=== PATIENT | male | born 1960 | race Caucasian/White ===

== ENCOUNTER → 2022-09-14 | Outpatient (CLI) | payer BC, SELFPAY ==
--- NOTE | 2022-09-14 08:07 | US_ITS ---
INDICATION: Intermittent right upper quadrant pain. EXAMINATION: Ultrasound US Abdomen Complete TECHNIQUE: Pinzon-scale and color Doppler imaging was performed of the abdomen. COMPARISON: None. FINDINGS: LIVER: There is normal echotexture. No focal hepatic lesion. No intrahepatic biliary ductal dilatation. There is no free fluid. The liver measures about 16.8 cm in length. The portal vein is patent with normal hepatopedal flow. GALLBLADDER AND BILIARY TREE: Multiple gallstones and sludge in the gallbladder. The proximal common bile duct measures 3.5 mm. The gallbladder wall measures 2.8 mm. . SONOGRAPHIC BANGURA''S SIGN: Negative. PANCREAS: Obscured by bowel gas and not visualized. KIDNEYS: The right kidney measures 10.8 cm in length. The renal cortex measures 2.1 cm. There is a 2.2 cm cyst in the right kidney. US/Abdomen Limited IMPRESSION: 1. Sludge and gallstones without evidence of biliary duct dilatation or gallbladder wall thickening. 2. Small right renal cyst. Electronically Signed: Wood Martin MD at 15:47 EST ,
== END | disposition home or self-care (01) ==
LOC: US 08:05
PROVIDERS: PCP Family Medicine; Visit Provider Family Medicine
DX: R10.11 Right upper quadrant pain (principal)
CPT/HCPCS: 76705

== ENCOUNTER 2022-10-04 11:33 | Day surgery (SDC) | payer BC, SELFPAY ==
[2022-10-04] VITALS (11 sets, daily range): BP systolic 148–175; BP diastolic 94–112; PULSE 69–82; RESP 16–18; TEMP 36.6–36.8; O2SAT 9–98; BMI 29.3
--- NOTE | 2022-10-04 11:58 | EKG12_ITS ---
Test Reason : PRE-OP Blood Pressure : / mmHG Vent. Rate : 066 BPM Atrial Rate : 066 BPM P-R Int : 174 ms QRS Dur : 096 ms QT Int : 380 ms P-R-T Axes : 030 -20 027 degrees QTc Int : 398 ms Normal sinus rhythm Normal ECG No previous ECGs available Confirmed by THANH BARRETT, DALLAS ([id number]), deputy editor in chief GATITO MARTINEZ ([id number]) on 10/09/2022 11:39:05 AM Referred By: Elder Abdul Confirmed By:DALLAS LAW MD
--- NOTE | 2022-10-04 11:59 | PCM.HP.BLA ---
History and Physical Date of Admission: 10/04/22 Visit Reasons:?Abdominal Pain/09/15 [facility] [place] Complaint: abdominal pain Allergies No Known Allergies Allergy (Unverified 10/02/22 14:02) Medications atorvastatin 10 mg tablet 10 mg PO DAILY 10/02/22 [History Confirmed 10/02/22] bupropion HCl 100 mg tablet 100 mg PO DAILY 10/02/22 [History Confirmed 10/02/22] meloxicam 15 mg tablet 15 mg PO DAILY 10/02/22 [History Confirmed 10/02/22] lqjtqhpy-nes-rnutc acid 300 mcg-lycopene 600 mcg-lutein 300 mcg tablet (Centrum Silver Men) 1 tab PO DAILY 10/02/22 [History Confirmed 10/02/22] quinapril 10 mg tablet 10 mg PO DAILY 10/02/22 [History Confirmed 10/02/22] [facility] Social History?(Updated 10/02/22 @ 13:57 by Mahnaz Kramer) Smoking Status:? Never smoker alcohol intake:? never substance use type:? does not use HPI HPI HPI: 62-year-old gentleman is being referred by Dr. Dom Rowe for surgical consultation regarding abdominal pain.? A written copy of my surgical consult recommendations will return to him.? The patient is also being referred for consideration of colon cancer screening.? Apparently the patient had a episode severe abdominal pain spring 2021 and then again August 2022.? This occurred in the epigastric right upper quadrant area with radiation to his back.? By report at least a year and a half ago he had a similar episode and was seen at an emergency room where CT scan suggested gallstones.? At the [facility] on September 14, 2022 right upper quadrant abdominal ultrasound was obtained.? Multiple gallstones and sludge were noted.? Common bile duct measuring 3.5 mm.? Gallbladder wall was 2.8 mm.? Small right renal cyst noted. Steer the patient recants that it care abdominal pain but then it resolved.? He had a CT scan suggesting gallstones he then did well until July 2022 when he had another severe episode.? Claims that lasted about 15 minutes with very severe and then gradually faded.? He saw Dr. Rowe and a diagnosis tentatively be made of cholecystitis.? The patient has had hepatitis C but that was initially treated with interferon and then more recently treated and apparently has resolved.? He did not notice any Coca-Cola urine or any pruritus. He also is in need of a screening colonoscopy.? He notes some fecal incontinence couple hours after defecation.? Occasional blood but nothing specific.? He denies any previous history of colon polyps or colon cancer. He denies myocardial infarction CVA diabetes DVT.? 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 General General: No weight change, appetite, fatigue, colon cancer, breast cancer or weakness HEENT HEENT: No difficulty swallowing, eye injury, eye surgery, swollen glands or hoarseness Endo Endocrine: No thyroid disease, diabetes mellitus, thyroid cancer, Hair loss, heat intolerance or cold intolerance Skin Skin: No rash or changing moles Musc Musculoskeletal: Yes back problems and arthritis; No rheumatoid arthritis, gout or joint pain Cardio Cardiovascular: Yes high blood pressure; No murmur, pacemaker, heart disease, atrial fibrillation, heart attack, heart stent, palpitations, shortness of breat with exertion or chest pain Psych Psychiatric: Yes depression and anxiety; No hearing voices Resp Respiratory: No shortness of breath, No sleep apnea, No cough, No COPD, No asthma, No emphysema and No wheezing Gastro Gastrointestinal: Yes abdominal pain, No nausea or vomiting, No diarrhea, No constipation, No blood in stool, Yes acid reflux, Yes hemorrhoids, No ulcers, Yes gallbladder problem and No black,tarry stools Gerald Hematologic: No blood thinners, No blood disorders, No bleeding, No anemia and No blood clots Neuro Neurologic: No system reviewed and no additional complaints, except as documented, No as per HPI, No abnormal gait, No abnormal hearing, No abnormal movements, No abnormal speech, No behavioral changes, No burning sensations, No confusion, No convulsions, No disequilibrium, No dizziness, No localized weakness, No frequent falls, No headache(s), No lack of coordination, No loss of vision, No memory loss, No numbness, No other visual disturbances, No radicular pain, No restless legs, No sensory deficit, No syncope, No tingling, No tremor(s), No weakness and No other Exam Const General: cooperative, healthy appearing, comfortable and no acute distress [facility] Head: normal to inspection Eyes General: appearance normal, both eyes and all related structures Neck Neck: normal visual inspection Chest Chest palpation & inspection: normal inspection of the chest Resp Effort & Inspection: normal respiratory effort Auscultation: clear to auscultation bilaterally Cardio Rate: regular rate Rhythm: regular rhythm GI Inspection: normal to inspection Palpation: soft and no hepatosplenomegaly Musc Cervical Spine: normal cervical lordosis Skin General: no rashes or lesions noted Neuro General: patient alert, patient awake and patient oriented x3 Extrem General: no calf tenderness Psych Appearance: grossly normal Assessment and Plan Assessment and Plan (1) Cholelithiasis with chronic cholecystitis: ?Status:?Chronic (2) Screening for intestinal cancer: ?Status:?Acute Plan I initially recommended the patient a screening colonoscopy with possible biopsy or polypectomy as indicated.? He however is concerned that the bowel prep may throw him into a bout of acute cholecystitis.? He is willing to delay the colonoscopy till after his gallbladder surgery.? I do believe that the severe episodes of pain that he is having to correlate with his gallbladder and I have discussed with him in detail a laparoscopic cholecystectomy with cholangiograms and if need be an attempt at laparoscopic common bile duct exploration.? He has had an opportunity to ask and have questions answered. He is aware that OR staffing is very short currently.? We will try to schedule and expedite his care. I then anticipate allowing him an absolute full recovery from his general surgical procedure and likely catch up with the return colonoscopy in about 3 months. I very much appreciate the kind opportunity of assisting with the surgical care Copy: Dr. Dom Abdul M.D., F.A.C.S I have examined the patient and the H&P has been reviewed. There are no clinical changes since date of exam. Elder Abdul M.D., F.A.C.S.
[2022-10-04] MEDS: Lactated Ringers 1,000 ML 15 ML IV ×2 (12:39→15:00)
--- NOTE | 2022-10-04 13:52 | DCINST_ITS ---
Discharge Instructions Procedure General Surgery Diet Discharge Diet: Light diet - advance as tolerated (if you have questions about your diet instructions, please talk to you doctor.) Activity Discharge Activity: May Not Drive (for 3-5 days or while taking narcotic pain medicine.) May shower in (days): 1 Lifting Restrictions: 10 pounds Dressing / Incision Call your doctor if your incision/area has: Continuous Slow Oozing, Sudden Increased Bleeding, Increased Pain/ Swelling, Increased Redness and Foul Smelling Discharge Call your doctor if you observe: Fever of 101 or Higher Suture Line Care: Avoid Pulling/Pushing and Avoid Pinching/Bending Additional Dressing/Incision Instructions:: Change or remove dressing in 4 days. Leave steri-strips in place for 1 week. Follow Up Care Please Follow Up With: Elder Abdul MD When: Call [phone] to make an appointment to be seen in about 10 days. Test Results: Test results from this visit will be discussed in further detail at your follow- up appointment, if applicable. Discharge Plan Admission Attending Provider: Elder Abdul Primary Care Provider: Dom Rowe Discharge Orders/Prescriptions Prescriptions: No Action meloxicam 15 mg tablet 15 mg PO DAILY bupropion HCl 100 mg tablet 200 mg PO DAILY atorvastatin 10 mg tablet 10 mg PO DAILY quinapril 10 mg tablet 10 mg PO DAILY Centrum Silver Men 300-600-300 mcg tablet 1 tab PO DAILY Referrals / Follow Up: Dom Rowe MD [Primary Care Provider] - Disposition Disposition (needs filled in before D/C Order can be placed): Home, Self Care
--- NOTE | 2022-10-04 14:00 | GALL_PTH ---
PATIENT: ISIS SOARES LOC: [facility] [place] U#:[id number] AGE/SX: 62/M ROOM: RE10/04/[address]: Dr. Isis Abdul MD : 1960 BED: DIS: 10/04/2022 SPEC #: [id number] RECD: 10/04/22 16:57 STATUS: FELICIA RELandy #: [id number] NISREEN: 10/04/22 14:[address]: Isis Abdul DEPT: SURGICAL PATHOLOGY RECD BY: Divya Abbasi ENTERED: 10/05/22 09:42 SP TYPE: CASSIUS NOVA DR: Dr. Dom Rowe MD Tissues: Gallbladder, NOS Procedures: Surgery Specimen Level III HEADER OPERATION: Laparoscopic cholecystectomy with IOC PRE-OP DIAGNOSIS: Cholelithiasis with chronic cholecystitis TISSUE SUBMITTED: Gallbladder MICROSCOPIC DIAGNOSIS Gallbladder, cholecystectomy: Chronic cholecystitis and cholelithiasis. AM:antoni 10/08/2022 MICROSCOPIC DESCRIPTION Slides are reviewed. GROSS DESCRIPTION Received is one container labeled with the patient's name and designated gallbladder. The specimen consists of a gallbladder measuring 9.5 cm in length and up to 4 cm in diameter. The external surface is pink-garcia, smooth and glistening for the most part. Focally it is granular, hemorrhagic and contains cautery artifact. The gallbladder is distended with green-yellow mucoid bile and contains multiple, multifaceted brownish-black stones measuring in aggregate 4.5 x 3.5 x 2 cm and 1 to 1.5 cm in greatest dimension. A large amount of sludge material is also noted. The mucosa is bile-stained and without any mass lesions. The gallbladder wall measures up to 0.2 cm in thickness. Hand Glass Cutter sections from the gallbladder and the cystic duct are submitted in one cassette. / SJ:antoni 10/05/2022 TC:3 CPT: 07656
[2022-10-04] MEDS: Cefazolin 2 GM in 0.9% Normal Saline 100 ML IV (14:30)
[2022-10-04] MEDS: Bupivacaine Mpf 0.5% 30 ML VIAL (14:32)
--- NOTE | 2022-10-04 14:39 | RAD_ITS ---
CLINICAL HISTORY: Male, 62 years old. Possible common bile duct obstruction PROCEDURE: CHOLANGIOGRAM - FLUOROSCOPY TIME (if supplied): ( ) minutes/seconds Placement of the catheter and the procedure were performed by: Operating surgeon Fluoroscopy was provided by time study technologist, who was present in the room time of the procedure. TECHNIQUE: (All elements of maximal sterile barrier technique followed, including US elements as applicable Intraoperative cholangiogram was performed. Following contrast administration 76 fluoroscopic guided images were obtained. Glucagon was given during the study. There is emptying into the post bulbar duodenum without evidence for intraductal stone.. RAD/Cholangiogram O.R./Subsequent IMPRESSION: Patent common bile duct status post cholecystectomy. For more complete information. recommend correlation with surgical observation and note Electronically Signed: Indra Davalos MD at 15:56 EST ,
--- NOTE | 2022-10-04 14:39 | RAD_ITS ---
CLINICAL HISTORY: Male, 62 years old. Pain PROCEDURE: CHOLANGIOGRAM - transhepatic FLUOROSCOPY TIME (if supplied): 37.2 seconds Placement of the catheter and the procedure were performed by: Operating surgeon Fluoroscopy was provided by geospatial information technologist, who was present in the room time of the procedure. TECHNIQUE: (All elements of maximal sterile barrier technique followed, including US elements as applicable) Following contrast injection multiple fluoroscopic guided images were obtained without emptying into the common bile duct but without definitive evidence for obstructing stone possibly due to spasm. RAD/Cholangiogram/ O R,Initial IMPRESSION: Nonemptying of the common bile duct during intraoperative cholangiogram of uncertain etiology without definitive evidence for intraductal stone. For more complete information recommend correlation with surgical notes Electronically Signed: Indra Davalos MD at 16:01 EST ,
--- NOTE | 2022-10-04 15:36 | PCM.OPRPT ---
Report of Operation Date of Procedure: 10/04/22 Pre-Operative Diagnosis: Chronic cholecystitis cholelithiasis Post-Operative Diagnosis: Same Surgery/Procedure Performed:: Laparoscopic cholecystectomy with cholangiograms Description of Surgical Findings:: Timeout informed consent was obtained. 62-year-old gentleman was taken to the operating room placed upon the table underwent general endotracheal intubation anesthesia the abdomen was sterilely prepped and draped 0.25% Marcaine was used as a local anesthetic throughout the procedure a total of 30 cc was used skin sites were pretty anesthetized a vertical infraumbilical incision was created holding sutures of 0 Vicryl placed varies needle inserted saline drop test performed the abdomen was insufflated with a CO2 to a pressure of 10 mmHg pressure 10 mm trocar inserted 10 mm laparoscope inserted no evidence of any trocar injuries under direct visualization 5 mm ports were placed in the epigastric mid abdomen right upper quadrant patient was fibrofatty internally. The gallbladder was distracted tedious blunt dissection was instituted that the infundibulum until clearly the cystic duct and cystic artery were identified. The cystic artery was clipped proximally and distally prior to transecting it Hem-o-jonah clip was placed on the cystic duct and incision made in the cystic duct there was some sludge and debris which I then milked backwards then placed a cholangiogram catheter cholangiogram was performed with a very slow filling of the common bile duct. The patient received 1 mg of glucagon intravenously. Several intermittent pictures were performed until finally the contrast could be seen to escape into the duodenum. Although the common bile duct appeared to be mildly dilated there appeared to be either some spasm or potentially some stricturing right at the ampulla but the contrast did flow through. I could not demonstrate any intraluminal filling defect.. I did not see anything that warranted a laparoscopic common bile duct exploration at this time. Plan scram catheter was removed. Hem-o-jonah clip was placed on the cystic duct. The gallbladder was tediously dissected free from the liver bed with electrocautery. There was edema and inflammation identified. There was no stone or bile spillage. The gallbladder was placed in a retrieval bag. Because of the inflammatory changes I did place to be large in the liver bed. The right upper quadrant was irrigated and aspirated free of excess fluid. The gallbladder was exited at the umbilicus and enlargement of the fascia was required for exited the stone filled gallbladder. The abdomen had previous been allowed to deflate through an antiviral valve. The fascia was closed with 2 interrupted krglrn-so-mcvhg sutures of 0 Vicryl. Skin edges approximated opted for Monocryl subdermal stitches. Steri-Strips Telfa OpSite dressings applied. Sponge and instrument and needle counts were reported to the surgeon to be correct. Specimen gallbladder. Drains none. Blood loss minimal. The patient was taken to the recovery room in satisfied condition without apparent complication Elder Abdul M.D., F.A.C.S. Surgeon: Elder Abdul Type of Anesthesia: General and Local Anesthesiologist: Tee Tomlinson
[2022-10-04] MEDS: Ketorolac 30 MG/ML Syringe IV (17:15)
[2022-10-04] MEDS: HYDROcodone Bitartrate/Apap 5/325 Tablet PO (17:58)
== END 2022-10-04 18:47 | disposition home or self-care (01) ==
LOC: SDC 11:34 → AC 11:36
PROVIDERS: PCP Family Medicine; Referring Provider Surgery; Visit Provider Surgery
PROC: (CPT 47610; principal; 2022-10-04 13:40)
DX: K80.10 Calculus of gallbladder with chronic cholecystitis without obstruction (principal); N28.1 Cyst of kidney, acquired; K21.9 Gastro-esophageal reflux disease without esophagitis; I10 Essential (primary) hypertension; B19.20 Unspecified viral hepatitis C without hepatic coma
CPT/HCPCS: 47563; 00790; 74300; 74301; 76000; 88304; 93005; J7120; J1610; J2405

== ENCOUNTER 2023-01-11 07:01 | Day surgery (SDC) | payer BC, SELFPAY ==
[2023-01-11 07:27] VITALS: BP 141/91; PULSE 79; RESP 16; TEMP 36.3; O2SAT 96; BMI 28.7
[2023-01-11] MEDS: Lactated Ringers 1,000 ML 15 ML IV (07:32)
--- NOTE | 2023-01-11 07:59 | HP.PCM_ITS ---
History and Physical Date of Admission: 01/11/23 Chief Complaint: abdominal pain Allergies No Known Allergies Allergy (Unverified 10/02/22 14:02) Medications atorvastatin 10 mg tablet 10 mg PO DAILY 10/02/22 [History Confirmed 10/02/22] bupropion HCl 100 mg tablet 100 mg PO DAILY 10/02/22 [History Confirmed 10/02/22] meloxicam 15 mg tablet 15 mg PO DAILY 10/02/22 [History Confirmed 10/02/22] igxxvnpx-hxo-zfbmg acid 300 mcg-lycopene 600 mcg-lutein 300 mcg tablet (Centrum Silver Men) 1 tab PO DAILY 10/02/22 [History Confirmed 10/02/22] quinapril 10 mg tablet 10 mg PO DAILY 10/02/22 [History Confirmed 10/02/22] PFSH Social History?(Updated 10/02/22 @ 13:57 by Mahnaz Kramer) Smoking Status:? Never smoker alcohol intake:? never substance use type:? does not use HPI HPI HPI: 62-year-old gentleman is being referred by Dr. Dom Rowe for surgical consultation regarding abdominal pain.? A written copy of my surgical consult recommendations will return to him.? The patient is also being referred for consideration of colon cancer screening.? Apparently the patient had a episode severe abdominal pain spring 2021 and then again August 2022.? This occurred in the epigastric right upper quadrant area with radiation to his back.? By report at least a year and a half ago he had a similar episode and was seen at an emergency room where CT scan suggested gallstones.? At the [facility] on September 14, 2022 right upper quadrant abdominal ultrasound was obtained.? Multiple gallstones and sludge were noted.? Common bile duct measuring 3.5 mm.? Gallbladder wall was 2.8 mm.? Small right renal cyst noted. Steer the patient recants that it care abdominal pain but then it resolved.? He had a CT scan suggesting gallstones he then did well until July 2022 when he had another severe episode.? Claims that lasted about 15 minutes with very severe and then gradually faded.? He saw Dr. Rowe and a diagnosis tentatively be made of cholecystitis.? The patient has had hepatitis C but that was initially treated with interferon and then more recently treated and apparently has resolved.? He did not notice any Coca-Cola urine or any pruritus. He also is in need of a screening colonoscopy.? He notes some fecal incontinence couple hours after defecation.? Occasional blood but nothing specific.? He de nies any previous history of colon polyps or colon cancer. He denies myocardial infarction CVA diabetes DVT.? 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 General General: No weight change, appetite, fatigue, colon cancer, breast cancer or weakness HEENT HEENT: No difficulty swallowing, eye injury, eye surgery, swollen glands or hoarseness Endo Endocrine: No thyroid disease, diabetes mellitus, thyroid cancer, Hair loss, heat intolerance or cold intolerance Skin Skin: No rash or changing moles Musc Musculoskeletal: Yes back problems and arthritis; No rheumatoid arthritis, gout or joint pain Cardio Cardiovascular: Yes high blood pressure; No murmur, pacemaker, heart disease, atrial fibrillation, heart attack, heart stent, palpitations, shortness of breat with exertion or chest pain Psych Psychiatric: Yes depression and anxiety; No hearing voices Resp Respiratory: No shortness of breath, No sleep apnea, No cough, No COPD, No asthma, No emphysema and No wheezing Gastro Gastrointestinal: Yes abdominal pain, No nausea or vomiting, No diarrhea, No constipation, No blood in stool, Yes acid reflux, Yes hemorrhoids, No ulcers, Yes gallbladder problem and No black,tarry stools Gerald Hematologic: No blood thinners, No blood disorders, No bleeding, No anemia and No blood clots Neuro Neurologic: No system reviewed and no additional complaints, except as documented, No as per HPI, No abnormal gait, No abnormal hearing, No abnormal movements, No abnormal speech, No behavioral changes, No burning sensations, No confusion, No convulsions, No disequilibrium, No dizziness, No localized weakness, No frequent falls, No headache(s), No lack of coordination, No loss of vision, No memory loss, No numbness, No other visual disturbances, No radicular pain, No restless legs, No sensory deficit, No syncope, No tingling, No tremor(s), No weakness and No other Exam Const General: cooperative, healthy appearing, comfortable and no acute distress [facility] Head: normal to inspection Eyes General: appearance normal, both eyes and all related structures Neck Neck: normal visual inspection Chest Chest palpation & inspection: normal inspection of the chest Resp Effort & Inspection: normal respiratory effort Auscultation: clear to auscultation bilaterally Cardio Rate: regular rate Rhythm: regular rhythm GI Inspection: normal to inspection Palpation: soft and no hepatosplenomegaly Musc Cervical Spine: normal cervical lordosis Skin General: no rashes or lesions noted Neuro General: patient alert, patient awake and patient oriented x3 Extrem General: no calf tenderness Psych Appearance: grossly normal Assessment and Plan Assessment and Plan (1) Cholelithiasis with chronic cholecystitis: ?Status:?Chronic (2) Screening for intestinal cancer: ?Status:?Acute Plan I initially recommended the patient a screening colonoscopy with possible biopsy or polypectomy as indicated.? He however is concerned that the bowel prep may throw him into a bout of acute cholecystitis.? He is willing to delay the colonoscopy till after his gallbladder surgery.? I do believe that the severe episodes of pain that he is having to correlate with his gallbladder and I have discussed with him in detail a laparoscopic cholecystectomy with cholangiograms and if need be an attempt at laparoscopic common bile duct exploration.? He has had an opportunity to ask and have questions answered. He is aware that OR staffing is very short currently.? We will try to schedule and expedite his care. I then anticipate allowing him an absolute full recovery from his general surgical procedure and likely catch up with the return colonoscopy in about 3 months. I very much appreciate the kind opportunity of assisting with the surgical care Copy: Dr. Dom Abdul M.D., F.A.C.S The patient has undergone a laparoscopic cholecystectomy for chronic c holecystitis cholelithiasis and he has done well. He presented this time however to undergo a screening colonoscopy. He is aware of the technique, benefit, risk, alternatives. His history and physical otherwise is unchanged other than having accomplished the cholecystectomy. Elder Abdul M.D., F.A.C.S.
--- NOTE | 2023-01-11 08:00 | HP.PCM_ITS ---
HPI - General General Date of Admission: 01/11/23 Date of Service: 01/11/23 Chief Complaint: Screening for intestinal cancer HPI Narrative ELDER SOARES, is a 62 M who presents presents for screening colonoscopy today. He has not had a previous examination. [facility] Medical History (Updated 01/07/23 @ 13:31 by Ashley Erazo) Anxiety Arthritis Back pain Depression Former smoker Gastric reflux Hepatitis High cholesterol History of stress test Hypertension Leg cramps Wears glasses Home Medications atorvastatin 10 mg tablet 10 mg PO DAILY 10/02/22 [History Last Taken Unknown] bupropion HCl 100 mg tablet 200 mg PO DAILY 10/02/22 [History Last Taken Unknown] meloxicam 15 mg tablet 15 mg PO DAILY 10/02/22 [History Last Taken Unknown] wcylpbid-yji-rwjib acid 300 mcg-lycopene 600 mcg-lutein 300 mcg tablet (Centrum Silver Men) 1 tab PO DAILY 10/02/22 [History Last Taken Unknown] quinapril 10 mg tablet 10 mg PO DAILY 10/02/22 [History Last Taken 10/04/22] ranitidine HCl 150 mg tablet 150 mg PO QODAY 01/07/23 [History Last Taken Unknown] Allergy/AdvReac Type Severity Reaction Status Date / Time No Known Allergies Allergy Verified 01/11/23 07:27 Surgical History (Updated 01/07/23 @ 13:31 by Ashley Erazo) History of laparoscopic cholecystectomy Hx of elbow surgery Social History (Updated 10/02/22 @ 13:57 by Mahnaz Kramer) Smoking Status: Former smoker alcohol intake: never substance use type: does not use ROS Constitutional Constitutional: Reports systems reviewed and no addt'l complaints, except as documented Cardiovascular Cardiovascular: Denies chest pain Respiratory/Chest Respiratory/Chest: Denies shortness of breath at rest Gastrointestinal Gastrointestinal: Denies abdominal pain, change in bowel habits, hematochezia or melena Vital Signs Vital Signs Vital Signs: 01/11/23 07:27 01/11/23 07:27 Temperature 97.3 F L Temperature Source Temporal Pulse Rate 79 Respiratory Rate 16 Respiratory Pattern Normal Blood Pressure 141/91 H Blood Pressure Mean 107 Blood Pressure Source Monitor Blood Pressure Position Semi-Fowlers Blood Pressure Location Left Arm Pulse Ox 96 Oxygen Delivery Method Room Air Weight Weight: 199 lb 15.348 oz Body Mass Index (BMI) 28.7 Physical Exam Const alert, oriented x3 and no apparent distress General Appearance: cooperative and comfortable Eyes General Eye: normal appearance of both eyes Neck General: normal visual inspection Chest inspection of chest normal Resp Effort and Inspection: able to speak in complete sentences and symmetric chest movement Auscultation: clear to auscultation bilaterally Cardio regular rate and regular rhythm GI soft to palpation, non-tender and non-distended Extremity no calf tenderness Neuro oriented x3 Psych thought process normal Assessment & Plan Assessment/Plan (1) Screening for intestinal cancer: PLAN: 62-year-old gentleman presents for screening colonoscopy today. He is aware of the technique, benefit, risk, alternatives. He has had an opportunity to ask and have questions answered. We will proceed as noted. Elder Abdul M.D., F.A.C.S.
--- NOTE | 2023-01-11 08:15 | COLBX_PTH ---
PATIENT: ISIS SOARES LOC: EN U#:[id number] AGE/SX: 62/M ROOM: RE01/11/[address]: Dr. Isis Abdul MD : 1960 BED: DIS: 01/11/2023 SPEC #: [id number] RECD: 01/11/23 13:25 STATUS: FELICIA RE #: [id number] NISREEN: 01/11/23 08:[address]: Isis Abdul DEPT: SURGICAL PATHOLOGY RECD BY: Divya Abbasi ENTERED: 01/11/23 13:57 SP TYPE: COLON BX OTHR DR: Dr. Dom Rowe MD Tissues: Descending colon Procedures: Surgery Specimen Level IV HEADER OPERATION: Colonoscopy (MAC) with biopsy PRE-OP DIAGNOSIS: Screening TISSUE SUBMITTED: Biopsy polyp descending colon MICROSCOPIC DIAGNOSIS Descending colon polyp, biopsy: Fragments of colonic mucosa, no pathologic diagnosis. SJ:antoni 01/14/2023 MICROSCOPIC DESCRIPTION Slides are reviewed. GROSS DESCRIPTION Received in fixative is one container labeled with the patient's name and designated biopsy polyp descending colon. The specimen consists of two irregular fragments of light garcia soft tissue that in aggregate measure 0.6 x 0.3 x 0.1 cm. The specimen is totally submitted in one cassette. / SJ:antoni 01/11/2023 TC:4 CPT: 49030
--- NOTE | 2023-01-11 09:16 | OP.CCLET_ITS ---
01/11/2023 Dom Rowe Re : Colonoscopy procedure for Elder Diazshannon Rowe This procedure was performed on Wednesday, January 11, 2023. My impressions and recommendations are as follows: Impressions : - One 5 mm polyp in the distal descending colon, removed with a cold biopsy forceps. Resected and retrieved. - The examination was otherwise normal. Recommendations : - Discharge patient to home. - Resume previous diet. - Continue present medications. - Repeat colonoscopy in 5 years for surveillance based on pathology results. - Telephone my office for pathology results in 1 week. My findings are described in the full procedure note, which is enclosed. If I can be of further assistance, please feel free to contact me at Doctor phone number(s): Work: . Sincerely, Elder Abdul MD 01/11/2023 9:15:21 AM This report has been signed electronically.
--- NOTE | 2023-01-11 09:16 | OP.COLON_ITS ---
Patient Name: Elder Ross Procedure Date: 01/11/2023 8:45 AM Date of : 1960 Age: 62 Procedure: Colonoscopy Indications: Screening for colorectal malignant neoplasm Providers: Elder Abdul MD Referring MD: Elder Abdul MD Medicines: See the Anesthesia note for documentation of the administered medications Patient Profile: Last Colonoscopy: none. The patient's first colonoscopy is today. Complications: No immediate complications. Procedure: Pre-Anesthesia Assessment: - Prior to the procedure, a History and Physical was performed, and patient medications and allergies were reviewed. The patient's tolerance of previous anesthesia was also reviewed. The risks and benefits of the procedure and the sedation options and risks were discussed with the patient. All questions were answered, and informed consent was obtained. Prior Anticoagulants: The patient has taken no previous anticoagulant or antiplatelet agents. ASA Grade Assessment: II - A patient with mild systemic disease. After reviewing the risks and benefits, the patient was deemed in satisfactory condition to undergo the procedure. After I obtained informed consent, the scope was passed under direct vision. Throughout the procedure, the patient's blood pressure, pulse, and oxygen saturations were monitored continuously. The colonoscope was introduced through the anus and advanced to the cecum, identified by appendiceal orifice and ileocecal valve. The colonoscopy was performed without difficulty. The patient tolerated the procedure well. The quality of the bowel preparation was good. The ileocecal valve and the appendiceal orifice were photographed. Scope In: 8:52:45 AM Scope Withdrawal Time 0 hours 12 minutes 44 seconds Scope Out: 9:11:31 AM Total Procedure Duration Time 0 hours 18 minutes 46 seconds Findings: The perianal and digital rectal examinations were normal. A 5 mm polyp was found in the distal descending colon. The polyp was sessile. The polyp was removed with a cold biopsy forceps. Resection and retrieval were complete. The exam was otherwise without abnormality. Impression: - One 5 mm polyp in the distal descending colon, removed with a cold biopsy forceps. Resected and retrieved. - The examination was otherwise normal. Recommendation: - Discharge patient to home. - Resume previous diet. - Continue present medications. - Repeat colonoscopy in 5 years for surveillance based on pathology results. - Telephone my office for pathology results in 1 week. Procedure Code(s): --- Professional --- 00032, Colonoscopy, flexible; with biopsy, single or multiple Diagnosis Code(s): --- Professional --- Z12.11, Encounter for screening for malignant neoplasm of colon D12.4, Benign neoplasm of descending colon CPT copyright 2017 [employer]. All rights reserved. The codes documented in this report are preliminary and upon medical insurance coder review may be revised to meet current compliance requirements. Elder Abdul MD 01/11/2023 9:15:21 AM This report has been signed electronically. Number of Addenda: 0 Note Initiated On: 01/11/2023 8:45 AM
[2023-01-11 09:17] VITALS: BP 141/91; BP 96/67; PULSE 73; RESP 14; TEMP 36.3; O2SAT 93
[2023-01-11 09:20] VITALS: BP 108/73; BP 141/91; PULSE 67; RESP 16; O2SAT 94
[2023-01-11 09:25] VITALS: BP 116/75; BP 141/91; PULSE 67; RESP 16; O2SAT 94
[2023-01-11 09:32] VITALS: BP 130/95; BP 141/91; PULSE 77; RESP 14; TEMP 36.9; O2SAT 97
[2023-01-11 09:52] VITALS: BP 141/91
== END 2023-01-11 09:54 | disposition home or self-care (01) ==
LOC: EN 07:01 → AC 07:02
PROVIDERS: PCP Family Medicine; Referring Provider Surgery; Visit Provider Surgery
PROC: 0DJD8ZZ Inspection of Lower Intestinal Tract, Via Natural or Artificial Opening Endoscopic (ICD-10-PCS; CPT 45378; principal; 2023-01-11 08:10)
DX: Z12.11 Encounter for screening for malignant neoplasm of colon (principal); K80.10 Calculus of gallbladder with chronic cholecystitis without obstruction; I10 Essential (primary) hypertension; Z87.891 Personal history of nicotine dependence; N28.1 Cyst of kidney, acquired; E78.00 Pure hypercholesterolemia, unspecified; D12.4 Benign neoplasm of descending colon
CPT/HCPCS: 45380; 88305; J7120; J2405

== ENCOUNTER 2023-03-27 10:55 | Observation (INO) | payer BC, SELFPAY ==
[2023-03-21 13:34] LABS: Absolute Lymphocyte Count 1.07 X10^3/uL (0.83-4.51); Absolute Neutrophil Count 3.2 X10^3/uL (2.0-7.7); Basophil# 0.03 X10^3/uL; Basophil% 0.6 % (0-1); Eosinophil# 0.08 X10^3/uL; Eosinophils% 1.7 % (0-5); Hemoglobin 15.9 g/dL (13.0-16.5); Lymphocyte # 1.07 X10^3/ul (0.83-4.51); Lymphocyte % 22.6 % (19-41); Mean Corp Hgb Conc 33.8 g/dL (32-36); Mean Corpuscular Hgb 30.4 pg (27.0-32.0); Mean Corpuscular Volume 89.9 fL (80-94); Mean Platelet Vol. 10.2 fl (6.2-12.0); Monocyte# 0.31 X10^3/uL; Monocyte% 6.6 % (0-10); NRBC Flagged by Analyzer 0 % (0-5); Neutrophil # 3.23 X10^3/uL (2.7-7.7); Neutrophil % 68.3 % (47-70); Platelet Count 179 K/mm3 (150-450); RBC Distribution Width CV 13.1 % (11.6-14.6); RBC Distribution Width SD 42.7 fl (35.1-43.9); Red Blood Count 5.23 M/mm3 (4.6-6.2); White Blood Count 4.7 K/mm3 (4.4-11.0)
[2023-03-21 13:58] LABS: Magnesium 2.4 mg/dL (1.6-2.6)
[2023-03-21 14:01] LABS: Anion Gap 7 (5-15); BUN 17 mg/dL (7-18); BUN/Creat Ratio 14.2 RATIO (10-20); Calcium,Total 9.1 mg/dL (8.5-10.1); Chloride 103 mmol/L (98-107); EST Glomerular Filtration Rate 65 mL/min (>60); Est Glom Filt Rate - Afr Amer 79 mL/min (>60); Glucose 101 mg/dL (74-106); Sodium Level 137 mmol/L (136-145)
[2023-03-21 15:04] LABS: HIV - WCH Non-Reactive (Nonreactive); Hepatitis B Surface Antibody Reactive
[2023-03-21 15:05] LABS: Hepatitis C Antibody REACTIVE (Nonreactive)
--- NOTE | 2023-03-22 11:20 | HP.PCM_ITS ---
History and Physical Add?Addendum MR#: [id number] Acct: [id number] Name: ISIS SOARES Rep #: [id number] : 1960 Provider: Dr. Brandon Kenney DO Age/Sex: 62/M Location: [facility] [place].[facility] Status: Signed Intake Vital Signs 01/11/2307:27 02/16/2308:14 Height 5 ft 10 in 5 ft 10 in Weight: 207 lb BMI 29.7 Intake Visit Reasons: LUMBAR SPINE Chief Complaint: low back/ left leg pain Is patient in pain?: Yes (low back left leg) Pain scale (1-10): 8 Allergies No Known Allergies Allergy (Verified 02/15/23 08:15) Medications atorvastatin 10 mg tablet 10 mg PO DAILY 10/02/22 [History Confirmed 01/07/23] bupropion HCl 100 mg tablet 200 mg PO DAILY 10/02/22 [History Confirmed 01/07/23] meloxicam 15 mg tablet 15 mg PO DAILY 10/02/22 [History Confirmed 01/07/23] crziaomd-sxd-izonn acid 300 mcg-lycopene 600 mcg-lutein 300 mcg tablet (Centrum Silver Men) 1 tab PO DAILY 10/02/22 [History Confirmed 01/07/23] quinapril 10 mg tablet 10 mg PO DAILY 10/02/22 [History Confirmed 01/07/23] ranitidine HCl 150 mg tablet 150 mg PO QODAY 01/07/23 [History Confirmed 01/07/23] oxycodone-acetaminophen 7.5 mg-325 mg tablet 1 tab PO Q6H PRN pain 10 days #40 tabs 02/15/23 [Rx Confirmed 02/15/23] PFSH Medical History Anxiety Arthritis Back pain Depression Former smoker Gastric reflux Hepatitis High cholesterol History of stress test Hypertension Leg cramps Wears glasses Surgical History History of laparoscopic cholecystectomy Hx of elbow surgery Social History Smoking Status: Former smoker alcohol intake: never substance use type: does not use HPI LUMBAR SPINE Chief Complaint: low back/left leg pain Details: Parts of this documentation were recorded by a scribe, this documentation accurately reflects the service provided and the decisions made by me, Dr. Brandon Kenney, DO 02/15/23 0814. ISIS SOARES is a 62 year old M here today for low back/ left leg pain. Pt. states he has been experiencing pain for about a month and half. Denies known injury. Pt. denies previous back injury or back surgeries. He states his pain radiates down left leg constantly. His pain extends from his left low back into his left foot. He states his foot has been tingling for a month as well. He has been seen by the chiropractor, has had recent low back Xrays and has brought a lumbar disc MRI for review. He has been treating pain with rest,Ibuprofen, TENS and massage. Isis is a most pleasant gentleman 62 years old that has a chief complaint of pain on the left side of his low back that radiates down the left leg that has been described as an L5 dermatome. He was rather nonspecific about the location of the pain however after further and continued questioning I figured out that it was probably an L5 dermatome. He had a Medrol Dosepak at 1 point which did not even touch the pain. On examination he has very positive tension signs and very positive straight leg raising on the left side. His posterior tibialis reflex on the left is absent is 1+ on the right. He has some EHL weakness on the left as compared to the right. He cannot forward bend too far. He has little pain with extension of hi s lumbar spine although it does seem to increase the pain down the leg. He has 2+ patellar reflexes bilaterally. He has 1+ Achilles reflexes bilaterally. He has no long tract signs. Clonus is absent and Babinski's are downgoing. I reviewed his MRI scan of his lumbar spine. He has a ruptured disc particularly at L4-5 more to the left side which with what is possibly an extruded fragment. This was not called by the radiologist however that is not unusual. He does have degeneration of other levels and protrusion at L3-4 in particular however he does not have any L4 symptoms. I told him at some point time he will probably need surgical intervention. However for now we would like an epidural steroid injection. I called Dr. Rust and he agreed to see this patient on Saturday. That is 3 days from today. In the meantime I gave him some oxycodone 7.5/325 pain pills. I will see him again 2 weeks after the injection by Dr. Rust. In the meantime we will probably put him on the surgical schedule in the future as in the end he will need surgical intervention. Coding Level of Care Code Off vis,new,level 3 Diagnoses Herniated nucleus pulposus, L4-5 left M51.26
[2023-03-23 08:10] LABS: Hepatitis A AB, Total Negative (Negative)
[2023-03-27] VITALS (17 sets, daily range): BP systolic 108–158; BP diastolic 70–98; PULSE 70–90; RESP 14–19; TEMP 36.1–36.6; O2SAT 94–100; BMI 29.4
--- NOTE | 2023-03-27 | DISC_PTH ---
PATIENT: ISIS SOARSE LOC: MS3 U#:[id number] AGE/SX: 62/M ROOM: [facility] [place] RE03/27/[address]: Dr. Brandon Kenney DO : 1960 BED: 1 DIS: 03/28/2023 SPEC #: [id number] RECD: 03/27/23 15:30 STATUS: FELICIA REQ #: [id number] NISREEN: 03/27/23 00:[address]: Brandon Kenney DEPT: SURGICAL PATHOLOGY RECD BY: Terry Shah ENTERED: 03/28/23 13:10 SP TYPE: DISC OTHR DR: MD Dr. Jeff Weiss, MD Dr. Laxmi Davis Dr., MD Dr. Autumn L White, MD Dr. Mary Catherine Sementi, DO MD Patrick Tatum MD Dr. David Tomchak, MD Dr. Eric DeHorta, MD Dr. Eric Jopperi, MD Dr. Rafael Carrera Dr., MD Dr. James Mooney, MD Dr. Jonathan Vogt, DO Dr. Margaret Conroy, DO Dr. Noe Elizabeth, DO MD Dr. Jerod Hess MD Dr. Prakash Chand, MD Dr. Paul Nielsen, MD Dr. Paige Pierce, MD Dr. Ryan Burkholder, MD Jessica Franklin, ESTRELLA Flood Tissues: Intervertebral disc, NOS Procedures: Surgery Specimen Level III HEADER OPERATION: Laminectomy L4-5 left PRE-OP DIAGNOSIS: Herniated nucleus pulposus, L4-5 left, M51.26 TISSUE SUBMITTED: Disc 4,5 MICROSCOPIC DIAGNOSIS Herniated nucleus pulposus, L4-5 left: Fragment s of intervertebral disc with degenerative and reparative change. AM:marcial 03/29/23 MICROSCOPIC DESCRIPTION Slides are reviewed. GROSS DESCRIPTION Received is one container labeled with the patient name and designated disc 4,5. The specimen consists of multiple irregular fragments of garcia indurated tissue that in aggregate measure 2 x 2 x 0.3 cm. The specimen is totally submitted in one cassette. / SJ:tita 03/28/23 TC:5 CPT:26659
[2023-03-27] MEDS: Acetaminophen 500 MG Tablet 1000 MG PO ×3 (06:30→21:18)
[2023-03-27] MEDS: Magnesium 1 GM over 15 mins IV (06:35)
[2023-03-27] MEDS: Lactated Ringers 1,000 ML 15 ML IV ×4 (06:35→12:11)
[2023-03-27 06:37] LABS: Bedside Glucose 84 mg/dL (74-106)
--- NOTE | 2023-03-27 07:00 | RAD_ITS ---
STUDY: X-RAY - LUMBAR SPINE REASON FOR EXAM: Male, 62 years old. LAMINECTOMY L4-5 LEFT TECHNIQUE: 1 view(s) of the lumbar spine were obtained. COMPARISON: None FINDINGS: The localization instrument is seen posterior to the L5-S1 disc space level. RAD/Spine 1 View Any Level IMPRESSION: The localization instrument is seen posterior to the L5-S1 disc space level. Electronically Signed: Willis Braun MD at 9:53 EDT ,
[2023-03-27] MEDS: Cefazolin 2 GM in 0.9% Normal Saline 100 ML IV (08:45)
[2023-03-27] MEDS: THROMBIN (RECOMBINANT) 20,000 UNIT VIAL 20000 UNIT TOPICAL (09:05)
[2023-03-27 10:46] LABS: Bedside Glucose 99 mg/dL (74-106)
--- NOTE | 2023-03-27 11:00 | OP.PCM_ITS ---
Report of Operation Description of Surgical Findings:: Preoperative diagnosis: Herniated disc L4-5 on the left with severe left L5 radiculopathy intractable pain and neurological deficit Postoperative diagnosis: The same The procedure: Lumbar laminectomy discectomy and opening of lateral recess L4-5 on the left CPT code 99504 Surgeon: Dr. Kenney [employer] Administrator: Chiqui DE LA ROSA Anesthesia: General endotracheal administered by [facility] EBL: Less than 25 cc Drains: None Complications: None Procedure: Patient was taken to the OR where he was placed under general endotracheal anesthesia. A Frances catheter was inserted. Neuro monitoring placed her leads on the patient. He was then placed in prone position on the Gibson frame. After appropriate positioning with care to protect his bony prominences, his genitalia, ulnar nerves of both elbows, and the brachial plexus bilaterally, and the cervical spine and facial features the back was prepped and draped in standard fashion. I then made a longitudinal incision centered over the lower part of his back subcutaneous tissues were incised length of the skin incision I opened the lumbar fascia to the left of the spinous processes and elevated the paravertebral muscles off a one of the interspaces that we thought might be L4-5 however an intraoperative x-ray demonstrated that it was L5-S1. We simply moved up 1 level to L4-5. I elevated the paravertebral muscles off the lamina of L4 and the top of the lamina of L5. Moved all the areolar tissue off of the ligamentum flavum with Lennon rongeurs. I thinned down the L4 lamina on the left with double-action rongeurs. Then release ligamentum flavum off the underside of the lamina using curettes. I then performed the laminectomy with 45 degree Kerrison rongeurs. Noted I went all the way out lateral and open the lateral recess which was quite tight. In addition he had overlapping superior facet of L5 which undoubtedly led to the lateral recess stenosis. All the ligamentum flavum was removed laterally as this played a role in the stenosis also. I then carefully was able to move the L5 nerve root and dura medialward exposing the disc note that the disc appeared soft and when I pressed on it subligamentous disc came out. These pieces were removed with pituitary rongeurs. I then removed more disc from the disc base with straight and up-biting pituitary rongeurs. In addition I did a foraminotomies following the L5 nerve root out. When done it was completely loose with no pressure at all on that nerve root. Note that we thoroughly irrigated every 10 to 50 minutes in the course of the case during the entire case. This is to prevent infection of course. Lastly we put an amniotic membrane directly over the dura to prevent adhesions or scar formation in the future. We covered it with Gelfoam. The area was so dry there was no need for a drain. Then began closure closing the lumbar fascia using fadake-fo-ibwux suture with #1 Vicryl followed by closure of subcutaneous tissues with 0 Vicryl and 2-0 Vicryl in interrupted fashion and the skin was approximated using skin clips. Sterile dressings were then applied. The patient was then recovered in the OR moved to his hospital bed and then taken to recovery in satisfactory condition. This the end of operative summary on Elder Ross. This is Dr. Kennye dictating.
[2023-03-27] MEDS: Morphine 4 MG/ML Syringe IV ×4 (13:55→23:09)
--- NOTE | 2023-03-27 14:51 | CON.PCM.HO_ITS ---
Assessment & Plan Assessment/Plan (1) Herniated nucleus pulposus, L4-5 left: PLAN: Plan This is 61-year-old gentleman being admitted for elective herniated left L4-5 region. 1. Herniated disc L4-5 on the left with severe left L5 radiculopathy with left foot numbness/neurological deficit: Patient had elective lumbar laminectomy discectomy and opening of left lateral recess of L4-5. Patient is admitted unde r his spine surgeon Dr. Kenney. Pain control on morphine, tramadol, Valium as muscle relaxant. PT and OT, incentive spirometry. Frances catheter care. VTE prophylaxis as per discretion of operative surgeon. CBC BMP tomorrow AM. Last CBC BMP 07 623 reviewed 2. Hypertension: Blood pressure is controlled. Patient on lisinopril 10 mg daily 3. Dyslipidemia: On atorvastatin. 4. Anxiety and depression: Patient is on trazodone. Laboratory Results 03/27/23 06:18: POC Glucose 84 03/27/23 10:27: POC Glucose 99 HPI Consult Data Date of Consult: 03/27/23 HPI Narrative Reason for Consultation: Perioperative management after lumbar laminectomy and discectomy. HPI Narrative: ISIS SOARES, is a 62 M who is admitted after elective surgery for herniated disc L4-5 on the left with severe left L5 radiculopathy with intractable pain and neurologic deficit/left foot numbness. Patient sciatica pain radiated up to left ankle. Patient also had tingling sensation of foot and toes. He feels better with resolution of tingling of left foot. He has pain about 7-8/10 inte nsity mainly in the operative lumbar back area. Patient had lumbar laminectomy, discectomy and opening of lateral recess L4-5 on left. Denies history of chronic cardiac conditions including CAD/UT, CHF, arrhythmia/valvular heart disease, pulmonary conditions, stroke. Patient has history of hypertension. Denies diabetes mellitus. [facility] Medical History Anxiety Arthritis Back pain Depression Former smoker Gastric reflux Hepatitis High cholesterol History of steroid therapy History of stress test Hypertension Leg cramps Wears glasses Home Medications atorvastatin 10 mg tablet 10 mg PO DAILY 10/02/22 [History Last Taken 03/26/23] bupropion HCl 100 mg tablet 200 mg PO DAILY 10/02/22 [History Last Taken 03/26/23] meloxicam 15 mg tablet 15 mg PO DAILY 10/02/22 [History Last Taken 03/26/23] gxegmqbi-to-cxycu 300 mcg-K 60 mcg-lycop 600 mcg-lutein 300 mcg tablet (Centrum Silver Men) 1 tab PO DAILY 10/02/22 [History Last Taken 03/26/23] ranitidine HCl 150 mg tablet 150 mg PO QODAY 01/07/23 [History Last Taken 03/26/23] lisinopril 10 mg tablet 10 mg PO DAILY 03/12/23 [History Last Taken 03/27/23 04:15] trazodone 100 mg tablet 100 mg PO QHS 03/12/23 [History Last Taken 03/26/23] Allergy/AdvReac Type Severity Reaction Status Date / Time No Known Allergies Allergy Verified 03/27/23 06:12 Surgical History History of laparoscopic cholecystectomy Hx of colonoscopy Hx of elbow surgery Social History Smoking Status: Former smoker alcohol intake: never substance use type: does not use ROS ROS Narrative Constitutional: Reports fatigue and weakness. No fever. HEENT: Reports systems reviewed and no addt'l complaints, except as documented Respiratory/Chest: No acute shortness of breath or respiratory distress or wheezing. CVS: No chest pain or pressure. Gastrointestinal: Denies coffee ground emesis, hematemesis or vomiting Genitourinary: Frances catheter draining clear urine. Denies burning urination or new urinary tract symptoms Musculoskeletal: Back pain mainly at the operative region. Chronic sciatica pain with radiation to left lower extremity. Neurologic: Denies seizure-like symptoms. Chronic left ankle/foot numbness. Peripheral neuropathy. skin: No ulcer. No rash Endocrinology: Reports systems reviewed and no addt'l complaints, except as documented Hematologic/Lymphatic: Reports systems reviewed and no addt'l complaints, except as documented Rest 14 ROS are negative except as mentioned in HPI Physical Exam Narrative General: Alert, Oriented x3, Cooperative HEENT: Atraumatic, PERRLA, EOMI, Normocephalic Oral: Oral mucosa moist. No Gingival or Mucosal Lesions/ Ulcerations Neck: Supple, No JVD, Negative Carotid Bruits Lungs: Air entry diminished in bilateral lung bases. No crepitation/rhonchi Cardiovascular: Regular rate, Regular Rhythm, Normal S1, Normal S2, No murmurs Abdomen: Bowel Sounds Present, Soft, Non Tender, Non-Distended : Frances catheter draining clear urine. No renal angle tenderness. No suprapubic tenderness. Extremities: No edema, Capillary Refill Less than 3 Seconds Skin: No rashes, No breakdown Musculoskeletal: No Tenderness to Palpation of Joints or Extremities. ROM intact at knee and hip joints. Spine/back: Could not sit up or roll down to inspect the back. Lumbar paraspinal muscle tenderness and stiffness. Neurological: Cranial nerves II-XII grossly intact, DTR 2+/4 and Symmetrical, Neuro grossly intact Psych/Mental Status: Flat affect. Lab / Micro Data 03/21/23 12:45 03/21/23 12:45 Labs: Laboratory Results - last 24 hr 03/27/23 06:18: POC Glucose 84 03/27/23 10:27: POC Glucose 99 Radiology Impression Spine X-Ray 03/27/23 07:00 IMPRESSION: The localization instrument is seen posterior to the L5-S1 disc space level. Electronically Signed: Willis Braun MD at 9:53 EDT , Charges/Coding Visit Charges Office Visits / Consults: 87138 OP Consult L4
[2023-03-27] MEDS: Cefazolin 1 GM/50 ML BAG IV (17:24)
[2023-03-27] MEDS: Ensure Surgery 237 ML LIQUID PO (17:26)
[2023-03-27] MEDS: traZODone 100 MG Tablet PO (21:19)
[2023-03-27] MEDS: Atorvastatin Calcium 10 MG Tablet PO (21:19)
[2023-03-27] MEDS: Lactated Ringers 1,000 ML 100 ML IV (21:20)
[2023-03-27] MEDS: CLARIFY ORDER NOTE (22:35)
[2023-03-27] MEDS: Mag Hydrox/Al Hydrox/Simeth 30 ML UDC PO (23:08)
[2023-03-28] MEDS: Cefazolin 1 GM/50 ML BAG IV (01:14)
[2023-03-28 01:30] VITALS: BP 103/59; PULSE 65; RESP 16; TEMP 36.8; O2SAT 97
[2023-03-28] MEDS: Morphine 4 MG/ML Syringe IV (02:35)
[2023-03-28 05:30] VITALS: BP 109/68; PULSE 68; RESP 16; TEMP 36.7; O2SAT 98
[2023-03-28] MEDS: Acetaminophen 500 MG Tablet 1000 MG PO ×2 (05:33→14:00)
[2023-03-28] MEDS: oxyCODONE 5 MG Tablet PO ×3 (05:36→14:00)
[2023-03-28 07:04] LABS: Absolute Lymphocyte Count 0.81 X10^3/uL (0.83-4.51); Absolute Neutrophil Count 9.4 X10^3/uL (2.0-7.7); Basophil# 0.02 X10^3/uL; Basophil% 0.2 % (0-1); Eosinophil# 0.02 X10^3/uL; Eosinophils% 0.2 % (0-5); Hematocrit 45.9 % (40-54); Hemoglobin 15.1 g/dL (13.0-16.5); Lymphocyte # 0.81 X10^3/ul (0.83-4.51); Lymphocyte % 7.3 % (19-41); Mean Corp Hgb Conc 32.9 g/dL (32-36); Mean Corpuscular Hgb 30.9 pg (27.0-32.0); Mean Corpuscular Volume 94.1 fL (80-94); Mean Platelet Vol. 10.6 fl (6.2-12.0); Monocyte# 0.86 X10^3/uL; Monocyte% 7.7 % (0-10); NRBC Flagged by Analyzer 0 % (0-5); Neutrophil # 9.42 X10^3/uL (2.7-7.7); Neutrophil % 84.3 % (47-70); Platelet Count 181 K/mm3 (150-450); RBC Distribution Width CV 13.2 % (11.6-14.6); RBC Distribution Width SD 45.2 fl (35.1-43.9); Red Blood Count 4.88 M/mm3 (4.6-6.2); White Blood Count 11.2 K/mm3 (4.4-11.0)
[2023-03-28 07:30] VITALS: O2SAT 95
[2023-03-28 07:30] LABS: Anion Gap 5 (5-15); BUN 17 mg/dL (7-18); BUN/Creat Ratio 15.6 RATIO (10-20); Chloride 104 mmol/L (98-107); Creatinine, Serum 1.09 mg/dL (0.70-1.30); EST Glomerular Filtration Rate 73 mL/min (>60); Est Glom Filt Rate - Afr Amer 88 mL/min (>60); Estimated Creatinine Clearance 73.48 ml/min; Glucose 104 mg/dL (74-106); Potassium 4.4 mmol/L (3.5-5.1); Sodium Level 138 mmol/L (136-145)
[2023-03-28] MEDS: Ensure Surgery 237 ML LIQUID PO (08:52)
[2023-03-28] MEDS: Lisinopril 10 MG Tablet PO (09:39)
[2023-03-28] MEDS: Famotidine 20 MG Tablet PO (09:39)
[2023-03-28 10:00] VITALS: BP 133/74; PULSE 69; RESP 16; TEMP 36.9; O2SAT 95
--- NOTE | 2023-03-28 13:00 | CASEMGMT ---
RN?CM?CLIENT EXPERIENCE MANAGER?CM?to room to meet with patient for initial transition planning/care coordination?assessment.?RN?CM?introduced self and role at [facility].? Pt voices understanding and consents to?assessment?at this time.? Pt resting in bed in no distress at this time.? @ bedside. Pt is A/O at this time and answers all questions appropriately.?? Care providers, pharmacy, and demographics verified/updated at this time. PCP: Dr Rowe Specialists: Dr Kenney-zacarias Preferred Pharmacy: [facility] Retail Insurance: [place] Prescription Benefit:?Yes Living Will/HPOA:?Pt does not currently have LW/HCPOA. Pt made aware that he can contact as an out-pt and make appt in the future if he decides he would like to talk with someone about this or would like to utilize [facility] social work for advanced directive completion.? Given [employer] card with information and contact number. Pt expresses understanding.? LNOK: , Tanika. 2 dtrs. Living Arrangements: Lives w/ in [facility] for now, while house is being built. 3 steps to enter. Indep w/ADL's. does most IADL's. able to assist pt as needed. Transportation:?Pt states drives self and states no transportation concerns at this time.? also drives. DME: ? Denies using any DME and denies needs.?Has a cane available. HHC/SNF: No hx of either. No PT/OT ordered this admission. RN CM spoke w/Dr Kenney and he is aware. He states no therapy eval or tx needed. Pt also declines needing/wanting to work w/therapy before discharge. Pt wishes to return home and states has no concerns with going home at time of discharge.??CM?to follow for any discharge planning/needs.? Pt and no concerns/needs at this time.? PLAN:??Home w/spousal support and discharge plans in place. Parag DAVENPORTN?RN?CM
--- NOTE | 2023-03-28 13:10 | PCM.PN.ORT ---
Objective Data Objective Data Elder is seen on rounds. He is in the company of his today. He complains that he is got some pain in his buttocks in the upper part of the back thigh. However does not go all the way down to his foot like it did so he has improved. I explained to him and his that this is probably from residual swelling of the nerve root as the nerve root was quite swollen as expected. This is from all the pressure that it has had now for several weeks. This should gradually improve as the swelling of the nerve root goes down over the next several weeks. The dressing is dry. Neurologically he is intact. We will discharge him today. Vital Signs: Vital Signs Temp Pulse Resp BP Pulse Ox O2 Del Method O2 Flow Rate 98.4 F 69 16 133/74 H 95 Room Air 4 03/28/23 10:00 03/28/23 10:00 03/28/23 10:00 03/28/23 10:00 03/28/23 10:00 03/28/23 10:00 03/27/23 13:00 Oxygen Flow Rate (L/min) 4 Oxygen Delivery Method Room Air Weight: 205 lb Body Mass Index (BMI) 29.4 Intake & Output: Intake and Output for Last 24 Hours 03/26/23 03/27/23 03/28/23 23:59 23:59 23:59 Intake Total 3981.5 / 4481.5 3047.17 / 3047.17 Output Total 3225 / 4125 1450 / 1450 Balance 756.5 / 356.5 1597.17 / 1597.17 Lab / Micro Data 03/28/23 05:50 03/28/23 05:50 Labs: Laboratory Results - last 24 hr 03/28/23 05:50: WBC 11.2 H, RBC 4.88, Hgb 15.1, Hct 45.9, MCV 94.1 H, MCH 30.9, MCHC 32.9, RDW Std Deviation 45.2 H, RDW Coeff of Hussein 13.2, Plt Count 181, MPV 10.6, Immature Gran % (Auto) 0.300, Neut % (Auto) 84.3 H, Lymph % (Auto) 7.3 L, [place] % (Auto) 7.7, Eos % (Auto) 0.2, Baso % (Auto) 0.2, Absolute Neuts (auto) 9.4 H, Absolute Lymphs (auto) 0.81 L, Nucleated RBC % 0, Sodium 138, Potassium 4.4, Chloride 104, Carbon Dioxide 29.0, Anion Gap 5, BUN 17, Creatinine 1.09, Estim Creat Clear Calc 73.48, Est GFR (MDRD) Af Amer 88, Est GFR (MDRD) Non-Af 73, BUN/Creatinine Ratio 15.6, Glucose 104, Calcium 9.0 Micro: Microbiology 03/21/23 12:45 Swab (Method) Nasal Screen MRSA/MSSA - Final
--- NOTE | 2023-03-28 13:19 | PCM.DC ---
Discharge Instructions Activity May shower in (days): 5 May resume sexual activity in: 4-6 weeks Lifting Restrictions: 15# Dressing / Incision Remove Dressing in: 4 days Follow Up Care Test Results: Test results from this visit will be discussed in further detail at your follow-up appointment, if applicable. Discharge Plan Admission Admit Date/Time: 03/27/23 10:55 Primary Reason for Your Visit: back surgery Attending Provider: Brandon Kenney Primary Care Provider: Dom Rowe Consulting Providers: Jean-Claude Nelson; Lindsey Paris; Jeff Christianson; Jennifer,[place]; [place]; Bina Shearer; Mahnaz Liu; Dom Carrillo; Patrick Tucker; Jean-Claude Otero; Amina Tam; Rafael Menchaca; Carmelo Moore; Jake Locke; Margaret Conroy; Noe Elizabeth; Magdalene Daily; Jerod Mcdonnell; Miguel Yin; Krishna Powell; Summer Collier; Jordan Bueno; Collette Wyman NP; Rebel Manning Discharge Orders/Prescriptions Prescriptions: No Action meloxicam 15 mg tablet 15 mg PO DAILY bupropion HCl 100 mg tablet 200 mg PO DAILY atorvastatin 10 mg tablet 10 mg PO DAILY Centrum Silver Men 300-600-300 mcg tablet 1 tab PO DAILY Zantac 150 mg Tablet 150 mg PO QODAY lisinopril 10 mg tablet 10 mg PO DAILY trazodone 100 mg tablet 100 mg PO QHS oxycodone-acetaminophen 5-325 mg tablet 1 tab PO Q6H PRN (Reason: pain) 10 Days Qty: 40 0RF Referrals / Follow Up: Dom Rowe MD [Primary Care Provider] - Disposition Disposition (needs filled in before D/C Order can be placed): Home, Self Care
--- NOTE | 2023-03-28 13:21 | DS.PCM_ITS ---
Providers Date of Admission: 03/27/23 Primary Care Physician: Dr. Dom Rowe MD Attending Physician: This patient was admitted yesterday 27 March. He underwent lumbar laminectomy L4-5 on the left side. Today he reports a little pain left in his buttocks and the back of the thigh but nothing like it was prior to the surgery. That is probably from residual swelling of the nerve root. Neurologically he is intact. He was given postop protocol regarding his activities. He was told when to shower when to come to the office etc. I will give him oxycodone 01/16/2025 for pain. This the end of discharge summary on Elder Ross. This is Dr. Kenney dictating. Consultations 03/27/23 12:16 Consult: Hospitalist Routine Consulting Provider: [facility] Reason for Consult: Medical Management EMERGENT Consult: No MD Notified: Yes Date Notified: 03/27/23 Time Notified: 10:57 Method of Notification: vis spok Reason For Visit: LT LUMBAR LAMINECTOMY L4-5 Diagnosis Discharge Diagnosis (1) Herniated nucleus pulposus, L4-5 left: Status: Acute Code(s): M51.26 - Other intervertebral disc displacement, lumbar region Medications at Discharge Home Medications atorvastatin 10 mg tablet 10 mg PO DAILY 10/02/22 bupropion HCl 100 mg tablet 200 mg PO DAILY 10/02/22 meloxicam 15 mg tablet 15 mg PO DAILY 10/02/22 [id number] 300 mcg-K 60 mcg-lycop 600 mcg-lutein 300 mcg tablet (Centrum Silver Men) 1 tab PO DAILY 10/02/22 ranitidine HCl 150 mg tablet 150 mg PO QODAY 01/07/23 lisinopril 10 mg tablet 10 mg PO DAILY 03/12/23 trazodone 100 mg tablet 100 mg PO QHS 03/12/23 oxycodone-acetaminophen 5 mg-325 mg tablet 1 tab PO Q6H PRN pain 10 days #40 tabs 03/28/23 Weight / BMI Weight Weight: 205 lb Body Mass Index (BMI) 29.4 ABG / Lab / Microbiology Data 03/28/23 05:50 03/28/23 05:50 Laboratory: Laboratory Results - last 24 hr 03/28/23 05:50: WBC 11.2 H, RBC 4.88, Hgb 15.1, Hct 45.9, MCV 94.1 H, MCH 30.9, MCHC 32.9, RDW Std Deviation 45.2 H, RDW Coeff of Hussein 13.2, Plt Count 181, MPV 10.6, Immature Gran % (Auto) 0.300, Neut % (Auto) 84.3 H, Lymph % (Auto) 7.3 L, [place] % (Auto) 7.7, Eos % (Auto) 0.2, Baso % (Auto) 0.2, Absolute Neuts (auto) 9.4 H, Absolute Lymphs (auto) 0.81 L, Nucleated RBC % 0, Sodium 138, Potassium 4.4, Chloride 104, Carbon Dioxide 29.0, Anion Gap 5, BUN 17, Creatinine 1.09, Estim Creat Clear Calc 73.48, Est GFR (MDRD) Af Amer 88, Est GFR (MDRD) Non-Af 73, BUN/Creatinine Ratio 15.6, Glucose 104, Calcium 9.0 Microbiology: Microbiology 03/21/23 12:45 Swab (Method) Nasal Screen MRSA/MSSA - Final D/C Instructions May shower in (days): 5 May resume sexual activity in: 4-6 weeks Meaningful Use Info Meaningful Use Diagnoses (Choose all that apply): None applicable Discharge Plan Admission Admit Date/Time: 03/27/23 10:55 Primary Reason for Your Visit: back surgery Attending Provider: Brandon Kenney Primary Care Provider: Dom Rowe Consulting Providers: Jean-Claude Nelson; Lindsey Paris; Jeff Christianson; Laxmi Rodriguez; Laxmi Tucker; Bina Shearer; Mahnaz Liu; Dom Carrillo; Patrick Tucker; Jean-Claude Otero; Amina Tam; Rafael Menchaca; Carmelo Moore; Jake Locke; Margaret Conroy; Noe Elizabeth; Magdalene Daily; Jerod Mcdonnell; Miguel Yin; Krishna Powell; Summer Collier; Jordan Bueno; Collette Wyman CANCELING MACHINE OPERATOR; Rebel Manning PA Discharge Orders/Prescriptions Prescriptions: No Action meloxicam 15 mg tablet 15 mg PO DAILY bupropion HCl 100 mg tablet 200 mg PO DAILY atorvastatin 10 mg tablet 10 mg PO DAILY Centrum Silver Men 300-600-300 mcg tablet 1 tab PO DAILY Zantac 150 mg Tablet 150 mg PO QODAY lisinopril 10 mg tablet 10 mg PO DAILY trazodone 100 mg tablet 100 mg PO QHS oxycodone-acetaminophen 5-325 mg tablet 1 tab PO Q6H PRN (Reason: pain) 10 Days Qty: 40 0RF Referrals / Follow Up: Dom Rowe MD [Primary Care Provider] - Disposition Disposition (needs filled in before D/C Order can be placed): Home, Self Care
--- NOTE | 2023-03-28 13:31 | PN.HOSP_ITS ---
Reason for Visit Reason for Visit: Diagnoses Other intervertebral disc displacement, lumbar region (03/27/23) Encounter for other preprocedural examination (03/27/23) Subjective Subjective Follow-up after back surgery. Patient standing up and walking. Voiding urine spontaneously. Frances cath was removed last night. Objective Data Objective Data Vital Signs: Vital Signs Temp Pulse Resp BP Pulse Ox O2 Del Method O2 Flow Rate 98.4 F 69 16 133/74 H 95 Room Air 4 03/28/23 10:00 03/28/23 10:00 03/28/23 10:00 03/28/23 10:00 03/28/23 10:00 03/28/23 10:00 03/27/23 13:00 Oxygen Flow Rate (L/min) 4 Oxygen Delivery Method Room Air Weight: 205 lb Body Mass Index (BMI) 29.4 Intake & Output: Intake and Output for Last 24 Hours 03/26/23 03/27/23 03/28/23 23:59 23:59 23:59 Intake Total 3981.5 / 4481.5 3430.50 / 3430.50 Output Total 3225 / 4125 1450 / 1450 Balance 756.5 / 356.5 1980.50 / 1980.50 Lab / Micro Data 03/28/23 05:50 03/28/23 05:50 Labs: Laboratory Results - last 24 hr 03/28/23 05:50: WBC 11.2 H, RBC 4.88, Hgb 15.1, Hct 45.9, MCV 94.1 H, MCH 30.9, MCHC 32.9, RDW Std Deviation 45.2 H, RDW Coeff of Hussein 13.2, Plt Count 181, MPV 10.6, Immature Gran % (Auto) 0.300, Neut % (Auto) 84.3 H, Lymph % (Auto) 7.3 L, [place] % (Auto) 7.7, Eos % (Auto) 0.2, Baso % (Auto) 0.2, Absolute Neuts (auto) 9.4 H, Absolute Lymphs (auto) 0.81 L, Nucleated RBC % 0, Sodium 138, Potassium 4.4, Chloride 104, Carbon Dioxide 29.0, Anion Gap 5, BUN 17, Creatinine 1.09, Estim Creat Clear Calc 73.48, Est GFR (MDRD) Af Amer 88, Est GFR (MDRD) Non-Af 73, BUN/Creatinine Ratio 15.6, Glucose 104, Calcium 9.0 Micro: Microbiology 03/21/23 12:45 Swab (Method) Nasal Screen MRSA/MSSA - Final Physical Exam Narrative Seen and examined today. General: Alert, Oriented x3, Cooperative HEENT: Atraumatic, PERRLA, EOMI, Normocephalic Oral: Oral mucosa moist. No Gingival or Mucosal Lesions/ Ulcerations Neck: Supple, No JVD, Negative Carotid Bruits Lungs: Air entry equal in bilateral lung bases. No crepitation/rhonchi Cardiovascular: Regular rate, Regular Rhythm, Normal S1, Normal S2, No murmurs Abdomen: Bowel Sounds Present, Soft, Non Tender, Non-Distended : Frances catheter draining clear urine. No renal angle tenderness. No suprapubic tenderness. Extremities: No edema, Capillary Refill Less than 3 Seconds Skin: No rashes, No breakdown Musculoskeletal: No Tenderness to Palpation of Joints or Extremities. ROM intact at knee and hip joints. Spine/back: Surgical dressing is dry. Mild lumbar paraspinal muscle tenderness and stiffness. Neurological: Cranial nerves II-XII grossly intact, DTR 2+/4 and Symmetrical, Neuro grossly intact Psych/Mental Status: Flat affect. Assessment & Plan Assessment/Plan (1) Herniated nucleus pulposus, L4-5 left: PLAN: Plan This is 61-year-old gentleman being admitted for elective herniated left L4-5 region. 1. Herniated disc L4-5 on the left with severe left L5 radiculopathy with left foot numbness/neurological deficit: Patient had elective lumbar laminectomy discectomy and opening of left lateral recess of L4-5. Patient is admitted under his spine surgeon Dr. Kenney. Pain control on morphine, tramadol, Valium as muscle relaxant. PT and OT, incentive spirometry. Frances catheter care. VTE prophylaxis as per discretion of operative surgeon. CBC BMP tomorrow AM. Last CBC BMP 07 623 reviewed 03/28: Patient is doing well with PT and OT. Labs reviewed. WBC 11.2 thousand. H&H 15.1/46%. Electrolytes in normal range. BUNs/creatinine normal. Glucose 104, calcium normal. 2. Hypertension: Blood pressure is controlled. Patient on lisinopril 10 mg daily 7/13 BP is controlled. 3. Dyslipidemia: On atorvastatin. 4. Anxiety and depression: Patient is on trazodone. Patient is hemodynamically stable and can be discharged from medical point of view. Laboratory Results 03/28/23 05:50: WBC 11.2 H, RBC 4.88, Hgb 15.1, Hct 45.9, MCV 94.1 H, MCH 30.9, MCHC 32.9, RDW Std Deviation 45.2 H, RDW Coeff of Hussein 13.2, Plt Count 181, MPV 10.6, Immature Gran % (Auto) 0.300, Neut % (Auto) 84.3 H, Lymph % (Auto) 7.3 L, [place] % (Auto) 7.7, Eos % (Auto) 0.2, Baso % (Auto) 0.2, Absolute Neuts (auto) 9.4 H, Absolute Lymphs (auto) 0.81 L, Nucleated RBC % 0, Sodium 138, Potassium 4.4, Chloride 104, Carbon Dioxide 29.0, Anion Gap 5, BUN 17, Creatinine 1.09, Estim Creat Clear Calc 73.48, Est GFR (MDRD) Af Amer 88, Est GFR (MDRD) Non-Af 73, BUN/Creatinine Ratio 15.6, Glucose 104, Calcium 9.0 Charges/Coding Visit Charges Office Visits / Consults: [id number] OV L3 Est
== END 2023-03-28 14:23 | disposition home or self-care (01) ==
LOC: SDC 13:04 → MS3 13:04
PROVIDERS: Anesthesiology; Internal Medicine; Admitting Provider Orthopaedic Surgery; PCP Family Medicine; Referring Provider Orthopaedic Surgery; Visit Provider Orthopaedic Surgery
PROC: (CPT 63030; principal; 2023-03-27 07:30)
DX: M51.16 Intervertebral disc disorders with radiculopathy, lumbar region (principal); I10 Essential (primary) hypertension; Z87.891 Personal history of nicotine dependence; Z79.899 Other long term (current) drug therapy; K21.9 Gastro-esophageal reflux disease without esophagitis; E78.00 Pure hypercholesterolemia, unspecified; M51.26 Other intervertebral disc displacement, lumbar region; F41.9 Anxiety disorder, unspecified; F32.A Depression, unspecified
CPT/HCPCS: 63030; 00630; 36415; 72020; 80048; 82962; 83735; 85025; 86703; 86706; 86708; 86803; 87081; 88304; 94668; 96365; 96366; 96375; 96376; 99221; J7120; G0378; J2405; J3475

== ENCOUNTER → 2024-03-06 | Outpatient (CLI) | payer BC, SELFPAY ==
--- NOTE | 2024-03-06 07:35 | MRI_ITS ---
STUDY: MRI LUMBAR SPINE WITH AND WITHOUT CONTRAST REASON FOR EXAM: Male, 63 years old. Pain -- Recurrent herniation of L4-5 on the left TECHNIQUE: Standardized fat and water weighted pulse sequences were obtained in the sagittal and axial planes. IV 19 ml clariscan was administered for the contrast portion of the examination. COMPARISON: X-ray the lumbar spine dated February 27, 2024. FINDINGS: Tiny 1.5 mm nodule is adherent to the anterior terminal nerve root just beneath the conus at the T11 level (see image #7/15 series 9) is compatible with benign appearing fibroma or neurogenic tumor. The lesion demonstrates postcontrast enhancement is seen on image 7/15 series 12. This can be further assessed by neurosurgery. There is straightening of the normal lumbar lordosis. There is no substantial scoliosis. Normal conus medullaris that terminates at the T11-T12 no fracture or marrow edema or compression deformity is present. T12-L1: Mild anterior endplate spurring. Normal disc height, hydration and morphology. Normal bilateral facet joints. Normal central canal and bilateral lateral recesses. Normal bilateral intervertebral neural foramina. L1-2: Diffuse disc desiccation with mild disc space narrowing and annular bulging. Normal bilateral facet joints. Normal central canal and bilateral lateral recesses. Normal bilateral intervertebral neural foramina. L2-3: Diffuse disc desiccation with mild disc space narrowing and annular bulging. Normal bilateral facet joints. Normal central canal and bilateral lateral recesses. Normal bilateral intervertebral neural foramina. L3-4: Diffuse disc desiccation with moderate disc space narrowing and a diffuse disc bulge. Mild anterior endplate spurring. Mild central canal stenosis and bilateral lateral recess stenosis with nerve root compression. Moderate facet joint hypertrophy. Mild fluid distention of the facet joints. Mild to moderate bilateral foraminal stenosis with posterior nerve root impingement. L4-5: Diffuse disc desiccation with moderate disc space narrowing. Midline to left paracentral moderate-sized disc protrusion measures 8 mm in diameter and causes right lateral recess stenosis with nerve root compression and moderate central canal stenosis. Mild to moderate facet joint hypertrophy. Left laminectomy defect noted. Mild to moderate bilateral foraminal stenosis with nerve root impingement. L5-S1: Diffuse disc desiccation with moderate disc space narrowing and diffuse disc bulge. Anterior endplate spurring. Mild facet joint hypertrophy. Moderate right foraminal stenosis with nerve root impingement due to a right foraminal disc protrusion. Normal left neural foramen. Normal central canal and bilateral lateral recesses. Normal visualized sacral ala. Normal visualized paraspinous soft tissue structures. Postcontrast images: Fibrotic scarring in the left laminectomy bed at L4-L5. Otherwise no suspicious or focal enhancement of the bony or soft tissue structures. 1. MRI/Spine Lumbar W/WO Contrast IMPRESSION: 2. Tiny 1.5 mm nodule is adherent to the anterior terminal nerve root just beneath the conus at the T11 level (see image #7/15 series 9) is compatible with benign appearing fibroma or neurogenic tumor. The lesion demonstrates postcontrast enhancement is seen on image 7/15 series 12. This can be further assessed by neurosurgery. 3. Left paracentral 8mm disc protrusion at L4-L5 with left lateral recess stenosis and moderate central canal stenosis 4. Multilevel degenerative changes, as described above. Electronically Signed: Td Aguilar MD at 11:53 EDT ,
[2024-03-06 08:53] LABS: CREATININE FINGERSTICK 1.1 mg/dL (0.70-1.30); EGFR FINGERSTICK > 60.0000 mL/min (>60)
== END | disposition home or self-care (01) ==
PROVIDERS: Referring Provider Internal Medicine Cardiovascular Disease; Visit Provider Internal Medicine Cardiovascular Disease
DX: M51.26 Other intervertebral disc displacement, lumbar region (principal)
CPT/HCPCS: 72158; A9575

== ENCOUNTER → 2024-03-25 | Outpatient (CLI) | payer BC, SELFPAY ==
[2024-03-25 16:49] LABS: HIV - WCH Non-Reactive (Nonreactive); Hepatitis B Surface Antibody Reactive; Hepatitis B Surface Antigen Non-Reactive (Nonreactive); Hepatitis C Antibody Preliminary Reactive (Nonreactive)
[2024-03-28 15:08] LABS: HCV Quant. RNA PCR HCV Not Detected IU/mL (.)
== END | disposition home or self-care (01) ==
PROVIDERS: Referring Provider Anesthesiology; Visit Provider Anesthesiology
DX: Z77.21 Contact with and (suspected) exposure to potentially hazardous body fluids (principal)
CPT/HCPCS: 36415; 86703; 86706; 86803; 87340; 87522